=== PATIENT | female | born 1960 ===

== ENCOUNTER 2017-02-24 14:53 | Inpatient (IN) | payer MEDICARE, OTHER ==
[2017-02-24 14:53] VITALS: BMI 35.4
[2017-02-24] MEDS ORDERED: Sodium Chloride 0.9% 1,000 ML IV ONE (15:17)
[2017-02-24] MEDS ORDERED: Iohexol 240 (50 ml) PO STA (15:17)
--- NOTE | 2017-02-24 15:25 | C.PDOC ---
History Of Present Illness 56 y/o female presents to ED with c/o right sided abdominal pain since Wednesday ( 5 days). Patient was seen by Dr. Plummer for symptoms, prescribed Cipro BID, which she has completed. Patient notes no improvement of pain with associated nausea, subjective fever, and trouble eating and drinking. Patient describes pain as constant, radiating to the back, and worse with movement. Patient also c /o abscess to right buttock near anus, noting she has had it drained in the past , but has been increasingly swollen and painful as of late. Denies headache, chest pain, SOB, vomiting, diarrhea, urinary symptoms. Time Seen by Provider: 02/24/17 15:10 Chief Complaint (Nursing): Abdominal Pain History Per: Patient History/Exam Limitations: no limitations Current Symptoms Are (Timing): Still Present Location Of Pain/Discomfort: RLQ Radiation Of Pain To:: None Quality Of Discomfort: "Pain" Associated Symptoms: Fever (subjective). denies: Vomiting, Diarrhea, Urinary Symptoms Recent travel outside of the [place]: No Past Medical History Reviewed: Historical Data, Nursing Documentation, Vital Signs Vital Signs: Last Vital Signs Temp 98.4 F 02/24/17 17:46 Pulse 72 02/24/17 17:46 Resp 17 02/24/17 17:46 BP 117/73 02/24/17 17:46 Pulse Ox 98 02/24/17 17:46 - Medical History PMH: Asthma, Back Problems (herniated disks), COPD, Diabetes, Emphysema, Gastritis, HTN, Hypercholesterolemia, Hypothyroidism, Kidney Stones, Chronic Kidney Disease, TIA Surgical History: Cholecystectomy, Endoscopy - [facility] Procedures COLONOSCOPY (04/17/14) ESOPHAGOGASTRODUODENOSCOPY [EGD] W/CLOSED BIOPSY (12/05/13) INJECT/INFUSE NEC (06/10/06) NEPHROTOMY (09/15/13) PERCU NEPHROSTMY W FRAG (08/17/13) PERCUTANEOUS PYELOGRAM (08/17/13) URETERAL CATHETERIZATION (09/15/13) VACCINATION NEC (10/12/14) Family History: States: Unknown Family Hx - Social History Hx Tobacco Use: No Hx Alcohol Use: No Hx Substance Use: No - Immunization History Hx Tetanus Toxoid Vaccination: No Hx Influenza Vaccination: No Hx Pneumococcal Vaccination: Yes (2013) Review Of Systems Except As Marked, All Systems Reviewed And Found Negative. Constitutional: Negative for: Fever, Chills Cardiovascular: Negative for: Chest Pain Respiratory: Negative for: Cough, Shortness of Breath, Wheezing Gastrointestinal: Positive for: Nausea, Abdominal Pain. Negative for: Vomiting , Diarrhea Skin: Negative for: Rash Physical Exam - Physical Exam Appears: Non-toxic, No Acute Distress Skin: Normal Color, Warm, Dry Head: Atraumatic, Normacephalic Oral Mucosa: Moist Chest: Symmetrical Cardiovascular: Rhythm Regular Respiratory: Normal Breath Sounds, No Rales, No Rhonchi, No Wheezing Gastrointestinal/Abdominal: Soft, Tenderness (RLQ ), No Distention, Guarding, No Rebound Rectal: Other (chronic abscess with minimal localized erythema, no fluctuance, + tenderness) Back: No CVA Tenderness Extremity: Normal ROM, Capillary Refill (< 2 sec. ) Extremity: Bilateral: Normal Color And Temperature Neurological/Psych: Oriented x3, Normal Speech, Normal Cognition ED Course And Treatment - Laboratory Results Result Diagrams: 02/24/17 15:43 02/24/17 15:43 Lab Interpretation: Abnormal Interpretation Of Abnormal: Lipase 784 Urine WBC 49 with 3+ leukocyte esterase O2 Sat by Pulse Oximetry: 96 (RA) Pulse Ox Interpretation: Normal - CT Scan/US CT abdomen and pelvis Other Rad Studies (CT/US): Read By Radiologist, Radiology Report Reviewed CT/US Interpretation: Accession No. : [id number]. Patient Name / ID : SUSY DESAI / [id number]. Exam Date : 02/24/2017 17:40:36 ( Approved ). Study Comment : Sex / Age : F / 56Y. Creator : Maria Del Rosario Lozoya MD. Dictator : Maria Del Rosario Lozoya MD. Splicing Supervisor : Warehouse Team Leader : Maria Del Rosario Lozoya MD. Approver2 : Report Date : 02/24/2017 18:13:03. My Comment : . PROCEDURE: CT Abdomen and Pelvis with oral and IV contrast. HISTORY: abd pain. COMPARISON: Renal ultrasound 05/01/16. TECHNIQUE: Contiguous axial images of the abdomen and pelvis. Oral and IV contrast was administered. Coronal and Sagittal reformats generated and reviewed. Contrast dose: 100 cc Visipaque. Radiation dose: Total exam DLP = 943.33 MGy-cm. This CT exam was performed using one or more of the following dose reduction techniques: Automated exposure control, adjustment of the mA and/or kV according to patient size, and/or use of iterative reconstruction technique. FINDINGS: LOWER THORAX : No visible consolidation, pleural effusion, or pneumothorax. LIVER: Hypoattenuation of the liver compatible with hepatic steatosis. GALLBLADDER AND BILE DUCTS: Cholecystectomy clips. PANCREAS: Unremarkable. SPLEEN: Unremarkable. ADRENALS: Unremarkable. KIDNEYS AND URETERS: The kidneys enhance symmetrically. No hydronephrosis or obstructing renal calculus. BLADDER : The urinary bladder appears unremarkable. REPRODUCTIVE: Uterus is absent, presumably due to hysterectomy. APPENDIX: The appendix appears within normal limits of caliber. No secondary signs of acute appendicitis. BOWEL: The stomach is nondistended. The bowel loops appear within normal limits of caliber without evidence of intestinal obstruction. Mild constipation. PERITONEUM: No significant free fluid. No definite free air. LYMPH NODES: No bulky lymphadenopathy identified. VASCULATURE: No aortic aneurysm. BONES: Degenerative changes. Vacuum disc phenomenon at L5-S1. OTHER FINDINGS: Partially imaged 2.5 x 2.6 cm partially calcified heterogeneous lesion within the left breast, indeterminate. Recommend correlation with dedicated breast imaging. IMPRESSION: Cholecystectomy. Hysterectomy. Hepatic steatosis. Partially imaged partially calcified heterogeneous lesion within the left breast , indeterminate. Recommend further evaluation with dedicated breast imaging. Mild constipation. Additional findings as above. Progress Note: CT abdomen/pelvis, labs ordered and reviewed. Treated with morphine, Zofran, IVFs. Reevaluation Time: 18:38 Reassessment Condition: Improved - Physician Consult Information Time Consulting Physician Contacted: 18:38 Physician Contacted: Roger Plummer Outcome Of Conversation: Patient to be kept on observation for IV fluids and pain management of pancreatitis. Disposition - Disposition Disposition: HOSPITALIZED Disposition Time: 18:39 Condition: STABLE - POA Present On Arrival: None - Clinical Impression Clinical Impression: Pancreatitis, UTI (urinary tract infection) - Scribe Statement The provider has reviewed the documentation as recorded by the Katarina Blanc Provider Attestation: All medical record entries made by the Katarina were at my direction and personally dictated by me. I have reviewed the chart and agree that the record accurately reflects my personal performance of the history, physical exam, medical decision making, and the department course for this patient. I have also personally directed, reviewed, and agree with the discharge instructions and disposition.
[2017-02-24] MEDS ORDERED: Sodium Chloride 0.9% 1,000 ML ONE (15:45)
[2017-02-24] MEDS ORDERED: Iohexol 240 (50 ml) ONE (15:46)
[2017-02-24 15:52] LABS: BASO # 0.1 K/uL (0.0-0.2); EOS # 0.5 K/uL (0.0-0.7); EOS % 6.5 % (0.0-4.0); HEMOGLOBIN 13.2 g/dL (11.0-16.0); LYMPH # 2.7 K/uL (1.0-4.3); LYMPH % 34.3 % (20.0-40.0); MEAN CELL VOLUME 87.1 fL (81.0-99.0); MEAN CORPUSCULAR HEMOGLOBIN 29.6 pg (27.0-31.0); MONO # 0.5 K/uL (0.0-0.8); MONO % 6.7 % (0.0-10.0); NEUT % 51.5 % (50.0-75.0); NRBC % 0.1 % (0.0-2.0); RBC 4.47 Mil/uL (3.80-5.20); RED CELL DISTRIBUTION WIDTH 13.7 % (11.5-14.5); WHITE BLOOD COUNT 7.8 K/uL (4.8-10.8)
[2017-02-24 15:59] LABS: SQUAMOUS EPITHIAL 16 /hpf (0-5); URINE BACTERIA RARE (<OCC); URINE BILIRUBIN NEGATIVE (NEGATIVE); URINE BLOOD NEGATIVE (NEGATIVE); URINE CLARITY Hazy (Clear); URINE COLOR Yellow (YELLOW); URINE GLUCOSE (UA) NORMAL (Normal); URINE LEUKOCYTE ESTERASE 3+ Leu/uL (Negative); URINE NITRATE NEGATIVE (NEGATIVE); URINE PROTEIN NEGATIVE (NEGATIVE); URINE UROBILINOGEN NORMAL mg/dL (0.2-1.0)
[2017-02-24 16:02] LABS: ALBUMIN 3.9 g/dL (3.5-5.0)
[2017-02-24 16:05] LABS: ALT/SGPT 42 U/L (9-52); AST/SGOT 33 U/L (14-36); BLOOD UREA NITROGEN 11 mg/dL (7-17); GFR AFRICAN-AMERICAN > 60; GFR NON-AFRICAN AMERICAN > 60; LIPASE 784 U/L (23-300)
[2017-02-24] MEDS ORDERED: Iohexol 350mg/ml 100 ML ONE (17:02)
--- NOTE | 2017-02-24 18:15 | CT ---
PROCEDURE: CT Abdomen and Pelvis with oral and IV contrast. HISTORY: abd pain COMPARISON: Renal ultrasound 05/01/16 TECHNIQUE: Contiguous axial images of the abdomen and pelvis. Oral and IV contrast was administered. Coronal and Sagittal reformats generated and reviewed. Contrast dose: 100 cc Visipaque Radiation dose: Total exam DLP = 943.33 MGy-cm. This CT exam was performed using one or more of the following dose reduction techniques: Automated exposure control, adjustment of the mA and/or kV according to patient size, and/or use of iterative reconstruction technique. FINDINGS: LOWER THORAX: No visible consolidation, pleural effusion, or pneumothorax. LIVER: Hypoattenuation of the liver compatible with hepatic steatosis. GALLBLADDER AND BILE DUCTS: Cholecystectomy clips. PANCREAS: Unremarkable. SPLEEN: Unremarkable. ADRENALS: Unremarkable. KIDNEYS AND URETERS: The kidneys enhance symmetrically. No hydronephrosis or obstructing renal calculus. BLADDER: The urinary bladder appears unremarkable. REPRODUCTIVE: Uterus is absent, presumably due to hysterectomy. APPENDIX: The appendix appears within normal limits of caliber. No secondary signs of acute appendicitis. BOWEL: The stomach is nondistended. The bowel loops appear within normal limits of caliber without evidence of intestinal obstruction. Mild constipation. PERITONEUM: No significant free fluid. No definite free air. LYMPH NODES: No bulky lymphadenopathy identified. VASCULATURE: No aortic aneurysm. BONES: Degenerative changes. Vacuum disc phenomenon at L5-S1. OTHER FINDINGS: Partially imaged 2.5 x 2.6 cm partially calcified heterogeneous lesion within the left breast, indeterminate. Recommend correlation with dedicated breast imaging. IMPRESSION: Cholecystectomy. Hysterectomy. Hepatic steatosis. Partially imaged partially calcified heterogeneous lesion within the left breast, indeterminate. Recommend further evaluation with dedicated breast imaging. Mild constipation. Additional findings as above.
[2017-02-24] MEDS ORDERED: Albuterol 0.083% Inhal Sol (2.5 mg/3 mL) UD INH PRN (19:13)
[2017-02-24] MEDS: Sodium Chloride 0.9% 1,000 ML IV SCH (20:26)
[2017-02-24 21:05] VITALS: RESP 20
[2017-02-24] MEDS: (Novolog) Insulin Aspart, Recombinant 100 u/ml 10 ml vial SC SCH (22:12)
--- NOTE | 2017-02-24 22:35 | CP.PCM.HP ---
History of Present Illness - History of Present Illness History of Present Illness: 56 y/o female presents to ED with c/o right sided abdominal pain since Wednesday ( 5 days). Patient was seen by me for symptoms, prescribed Cipro BID, which she has completed. Patient notes no improvement of pain with associated nausea, subjective fever, and trouble eating and drinking. Patient describes pain as constant, radiating to the back, and worse with movement. Patient also c/o abscess to right buttock near anus, noting she has had it drained in the past, but has been increasingly swollen and painful as of late. Denies headache, chest pain, SOB, vomiting, diarrhea, urinary symptoms. Present on Admission - Present on Admission Any Indicators Present on Admission: Yes Review of Systems - Review of Systems Systems not reviewed;Unavailable: Acuity of Condition - Constitutional Constitutional: Fatigue, Lethargy - EENT Eyes: absent: As Per HPI, Blind Spots, Blurred Vision, Change in Vision, Decreased Night Vision, Diplopia, Discharge, Dry Eye, Exophthalmos, Floaters, Irritation, Itchy Eyes, Loss of Peripheral Vision, Pain, Photophobia, Requires Corrective Lenses, Sees Flashes, Spots in Vision, Tunnel Vision, Other Visual Disturbances, Loss of Vision, Other Ears: absent: As Per HPI, Decreased Hearing, Ear Discharge, Ear Pain, Tinnitus, Abnormal Hearing, Disequilibrium, Dizziness, Other Nose/Mouth/Throat: absent: As Per HPI, Epistaxis, Nasal Congestion, Nasal Discharge, Nasal Obstruction, Nasal Trauma, Nose Pain, Post Nasal Drip, Sinus Pain, Sinus Pressure, Bleeding Gums, Change in Voice, Dental Pain, Dry Mouth, Dysphagia, Halitosis, Hoarsness, Lip Swelling, Mouth Lesions, Mouth Pain, Odynophagia, Sore Throat, Throat Swelling, Tongue Swelling, Facial Pain, Neck Pain, Neck Mass, Other - Respiratory Respiratory: absent: As Per HPI, Cough, Dyspnea, Hemoptysis, Dyspnea on Exertion , Wheezing, Snoring, Stridor, Pain on Inspiration, Chest Congestion, Excessive Mucous Production, Change in Mucous Color, Pain with Coughing, Other - Gastrointestinal Gastrointestinal: Abdominal Pain, Nausea, Vomiting - Genitourinary Genitourinary: absent: As Per HPI, Change in Urinary Stream, Difficulty Urinating, Dysuria, Flank Pain, Hematuria, Pyuria, Nocturia, Urinary Incontinence, Urinary Frequency, Urinary Hesitance, Urinary Urgency, Voiding Freq/Small Amts, Freq UTI, Hx Renal/Bladder Calculi, Hx /Renal Surgery, Bladder Distension, Other Past Patient History - Infectious Disease Hx of Infectious Diseases: None - Tetanus Immunizations Tetanus Immunization: Unknown - Past Medical History & Family History Past Medical History?: Yes - Past Social History Smoking Status: Never Smoked - CARDIAC Hx Hypercholesterolemia: Yes Hx Hypertension: Yes - PULMONARY Hx Asthma: Yes Hx Chronic Obstructive Pulmonary Disease (COPD): Yes Hx Emphysema: Yes - NEUROLOGICAL Hx Transient Ischemic Attacks (TIA): Yes - HEENT Hx HEENT Problems: No - RENAL Hx Chronic Kidney Disease: Yes Hx Kidney Stones: Yes - ENDOCRINE/METABOLIC Hx Hypothyroidism: Yes - HEMATOLOGICAL/ONCOLOGICAL Hx Blood Disorders: No - INTEGUMENTARY Hx Dermatological Problems: No - MUSCULOSKELETAL/RHEUMATOLOGICAL Hx Falls: No - GASTROINTESTINAL Hx Gastritis: Yes - GENITOURINARY/GYNECOLOGICAL Hx Genitourinary Disorders: No - PSYCHIATRIC Hx Substance Use: No - SURGICAL HISTORY Hx Cholecystectomy: Yes - ANESTHESIA Hx Anesthesia: Yes Hx Anesthesia Reactions: No Hx Malignant Hyperthermia: No Meds Allergies/Adverse Reactions: Allergies Allergy/AdvReac Type Severity Reaction Status Date / Time apple Allergy SWELLING Verified 02/24/17 15:02 murcia Allergy SHORTNESS Verified 02/24/17 15:02 OF BREATH pear Allergy SWELLING Verified 02/24/17 15:02 Physical Exam - Constitutional Appears: No Acute Distress - Head Exam Head Exam: ATRAUMATIC, NORMAL INSPECTION, NORMOCEPHALIC - Eye Exam Eye Exam: EOMI, Normal appearance, PERRL Pupil Exam: NORMAL ACCOMODATION, PERRL - Respiratory Exam Respiratory Exam: Clear to Auscultation Bilateral, NORMAL BREATHING PATTERN - Cardiovascular Exam Cardiovascular Exam: REGULAR RHYTHM - GI/Abdominal Exam GI & Abdominal Exam: Normal Bowel Sounds, Soft. absent: Tenderness Results - Vital Signs Recent Vital Signs: Last Vital Signs Temp 97.7 F 02/24/17 21:02 Pulse 69 02/24/17 21:02 Resp 20 02/24/17 21:02 BP 146/81 02/24/17 21:02 Pulse Ox 97 02/24/17 21:02 - Labs Result Diagrams: 02/24/17 15:43 02/25/17 12:23 Labs: Laboratory Results - last 24 hr 02/24/17 21:27 POC Glucose (mg/dL) 124 H Assessment & Plan (1) Pancreatitis Status: Acute (2) UTI (urinary tract infection) Status: Acute (3) Uncontrolled diabetes mellitus Status: Acute (4) Urinary tract infection Status: Acute (5) Hypertension Status: Chronic
[2017-02-25] MEDS: (Novolog) Insulin Aspart, Recombinant 100 u/ml 10 ml vial SC SCH ×4 (07:54→22:00)
[2017-02-25] MEDS: Enoxaparin 40 mg Syringe SC SCH (09:21)
[2017-02-25 12:59] LABS: BLOOD UREA NITROGEN 8 mg/dL (7-17); GFR AFRICAN-AMERICAN > 60; GFR NON-AFRICAN AMERICAN > 60; LIPASE 616 U/L (23-300)
[2017-02-25 13:00] LABS: CALCIUM 9.4 mg/dl (8.6-10.4)
--- NOTE | 2017-02-25 14:34 | CP.PCM.PN ---
Subjective - Date & Time of Evaluation Date of Evaluation: 02/25/17 Time of Evaluation: 09:50 - Subjective Subjective: Pt seen & examined, still c/o abdominal pain Objective - Vital Signs/Intake and Output Vital Signs (last 24 hours): Temp Pulse Resp BP Pulse Ox 97.6 F 68 20 126/75 95 02/25/17 09:07 02/25/17 09:07 02/25/17 09:07 02/25/17 09:07 02/25/17 09:07 - Medications Medications: Current Medications Albuterol Sulfate (Albuterol 0.083% Inhal Elvira (2.5 Mg/3 Ml) Ud) 2.5 mg INH RQ6 PRN PRN Reason: Wheezing Enoxaparin Sodium (Lovenox) 40 mg SC DAILY [facility] Last Admin: 02/25/17 09:21 Dose: 40 mg Ceftriaxone Sodium 1 gm/ (Sodium Chloride) 100 mls @ 100 mls/hr IVPB DAILY [facility] Last Admin: 02/25/17 09:17 Dose: 100 mls/hr Sodium Chloride (Sodium Chloride 0.9%) 1,000 mls @ 100 mls/hr IV .Q10H [facility] Last Admin: 02/24/17 20:26 Dose: 100 mls/hr Insulin Aspart (Novolog) 0 unit SC ACHS [facility] PRN Reason: Protocol Last Admin: 02/25/17 11:50 Dose: Not Given Morphine Sulfate (Morphine) 2 mg SC Q4 PRN PRN Reason: pain Last Admin: 02/25/17 07:47 Dose: 2 mg Ondansetron HCl (Zofran Inj) 4 mg IVP Q8H PRN PRN Reason: Nausea/Vomiting Last Admin: 02/25/17 11:46 Dose: 4 mg Pneumococcal Polyvalent Vaccine (Pneumovax 23 Vaccine) 0.5 ml IM .ONCE ONE Stop: 02/27/17 08:01 - Labs Labs: 02/25/17 12:23 - Constitutional Appears: No Acute Distress - Head Exam Head Exam: ATRAUMATIC, NORMAL INSPECTION, NORMOCEPHALIC - Respiratory Exam Respiratory Exam: Clear to Ausculation Bilateral, NORMAL BREATHING PATTERN - Cardiovascular Exam Cardiovascular Exam: REGULAR RHYTHM, +S1, +S2. absent: Murmur - GI/Abdominal Exam GI & Abdominal Exam: Tenderness, Normal Bowel Sounds - Rectal Exam Rectal Exam: Deferred Assessment and Plan (1) Pancreatitis Status: Resolved (2) UTI (urinary tract infection) Status: Acute (3) Uncontrolled diabetes mellitus Status: Acute (4) Urinary tract infection Status: Acute (5) Hypertension Status: Chronic
[2017-02-25] MEDS: Sodium Chloride 0.9% 1,000 ML IV SCH ×2 (15:16→22:44)
[2017-02-26] MEDS: Sodium Chloride 0.9% 1,000 ML IV SCH ×4 (03:00→22:49)
[2017-02-26] MEDS: (Novolog) Insulin Aspart, Recombinant 100 u/ml 10 ml vial SC SCH ×4 (08:07→21:59)
[2017-02-26] MEDS: Enoxaparin 40 mg Syringe SC SCH (10:46)
[2017-02-26] MEDS: Hemorrohoidal Ointment (2 oz) TOP SCH (19:13)
[2017-02-27] MEDS: Sodium Chloride 0.9% 1,000 ML IV SCH (06:16)
--- NOTE | 2017-02-27 07:18 | CP.PCM.PN ---
Subjective - Date & Time of Evaluation Date of Evaluation: 02/27/17 Time of Evaluation: 20:00 - Subjective Subjective: Pt seen & examined, is improving, abdominal pain decreased Objective - Vital Signs/Intake and Output Vital Signs (last 24 hours): Temp Pulse Resp BP Pulse Ox 98.4 F 66 20 168/84 H 96 02/27/17 00:00 02/27/17 00:00 02/27/17 00:00 02/27/17 00:00 02/27/17 00:00 Intake and Output: 02/27/17 02/27/17 06:59 18:59 Intake Total 1900 Output Total 1 Balance 1899 - Medications Medications: Current Medications Albuterol Sulfate (Albuterol 0.083% Inhal Elvira (2.5 Mg/3 Ml) Ud) 2.5 mg INH RQ6 PRN PRN Reason: Wheezing Enoxaparin Sodium (Lovenox) 40 mg SC DAILY [facility] Last Admin: 02/26/17 10:46 Dose: 40 mg Ceftriaxone Sodium 1 gm/ (Sodium Chloride) 100 mls @ 100 mls/hr IVPB DAILY [facility] Last Admin: 02/26/17 10:46 Dose: 100 mls/hr Sodium Chloride (Sodium Chloride 0.9%) 1,000 mls @ 100 mls/hr IV .Q10H [facility] Last Admin: 02/27/17 06:16 Dose: 100 mls/hr Insulin Aspart (Novolog) 0 unit SC ACHS [facility] PRN Reason: Protocol Last Admin: 02/26/17 21:59 Dose: Not Given Morphine Sulfate (Morphine) 2 mg SC Q4 PRN PRN Reason: pain Last Admin: 02/26/17 19:06 Dose: 2 mg Multi-Ingredient Ointment (Prep-Hem) 1 ea TOP BID [facility] Last Admin: 02/26/17 19:13 Dose: 1 applic Ondansetron HCl (Zofran Inj) 4 mg IVP Q8H PRN PRN Reason: Nausea/Vomiting Last Admin: 02/25/17 11:46 Dose: 4 mg Pneumococcal Polyvalent Vaccine (Pneumovax 23 Vaccine) 0.5 ml IM .ONCE ONE Stop: 02/27/17 08:01 Assessment and Plan (1) Pancreatitis Status: Resolved (2) UTI (urinary tract infection) Status: Acute (3) Uncontrolled diabetes mellitus Status: Acute (4) Urinary tract infection Status: Acute (5) Hypertension Status: Chronic
--- NOTE | 2017-02-27 07:18 | CP.PCM.PN ---
Subjective - Date & Time of Evaluation Date of Evaluation: 02/26/17 Time of Evaluation: 19:30 - Subjective Subjective: pt is having RLQ abdominal pain and back pain Objective - Vital Signs/Intake and Output Vital Signs (last 24 hours): Temp Pulse Resp BP Pulse Ox 98.4 F 66 20 168/84 H 96 02/27/17 00:00 02/27/17 00:00 02/27/17 00:00 02/27/17 00:00 02/27/17 00:00 Intake and Output: 02/27/17 02/27/17 06:59 18:59 Intake Total 1900 Output Total 1 Balance 1899 - Medications Medications: Current Medications Albuterol Sulfate (Albuterol 0.083% Inhal Elvira (2.5 Mg/3 Ml) Ud) 2.5 mg INH RQ6 PRN PRN Reason: Wheezing Enoxaparin Sodium (Lovenox) 40 mg SC DAILY [facility] Last Admin: 02/26/17 10:46 Dose: 40 mg Ceftriaxone Sodium 1 gm/ (Sodium Chloride) 100 mls @ 100 mls/hr IVPB DAILY [facility] Last Admin: 02/26/17 10:46 Dose: 100 mls/hr Sodium Chloride (Sodium Chloride 0.9%) 1,000 mls @ 100 mls/hr IV .Q10H [facility] Last Admin: 02/27/17 06:16 Dose: 100 mls/hr Insulin Aspart (Novolog) 0 unit SC ACHS [facility] PRN Reason: Protocol Last Admin: 02/26/17 21:59 Dose: Not Given Morphine Sulfate (Morphine) 2 mg SC Q4 PRN PRN Reason: pain Last Admin: 02/26/17 19:06 Dose: 2 mg Multi-Ingredient Ointment (Prep-Hem) 1 ea TOP BID [facility] Last Admin: 02/26/17 19:13 Dose: 1 applic Ondansetron HCl (Zofran Inj) 4 mg IVP Q8H PRN PRN Reason: Nausea/Vomiting Last Admin: 02/25/17 11:46 Dose: 4 mg Pneumococcal Polyvalent Vaccine (Pneumovax 23 Vaccine) 0.5 ml IM .ONCE ONE Stop: 02/27/17 08:01 - Constitutional Appears: No Acute Distress - Head Exam Head Exam: ATRAUMATIC, NORMAL INSPECTION, NORMOCEPHALIC - Eye Exam Eye Exam: EOMI, Normal appearance, PERRL Pupil Exam: NORMAL ACCOMODATION, PERRL - ENT Exam ENT Exam: Mucous Membranes Moist, Normal Exam - Respiratory Exam Respiratory Exam: Clear to Ausculation Bilateral, NORMAL BREATHING PATTERN - Cardiovascular Exam Cardiovascular Exam: REGULAR RHYTHM, +S1, +S2. absent: Murmur - GI/Abdominal Exam GI & Abdominal Exam: Tenderness Additional comments: RLQ - Extremities Exam Extremities Exam: Full ROM, Normal Capillary Refill, Normal Inspection. absent : Joint Swelling, Pedal Edema - Back Exam Back Exam: muscle spasm, paraspinal tenderness - Neurological Exam Neurological Exam: Alert, Awake, CN II-XII Intact, Normal Gait, Oriented x3 Assessment and Plan (1) Pancreatitis Status: Resolved (2) UTI (urinary tract infection) Status: Acute (3) Uncontrolled diabetes mellitus Status: Acute (4) Urinary tract infection Status: Acute (5) Hypertension Status: Chronic
[2017-02-27] MEDS ORDERED: Pneumococcal 23-Valent Vaccine IM ONE (08:00)
[2017-02-27] MEDS: (Novolog) Insulin Aspart, Recombinant 100 u/ml 10 ml vial SC SCH ×2 (08:08→12:05)
[2017-02-27] MEDS: Enoxaparin 40 mg Syringe SC SCH (10:03)
[2017-02-27] MEDS: Hemorrohoidal Ointment (2 oz) TOP SCH (12:57)
--- NOTE | 2017-02-27 16:08 | CP.PCM.PN ---
Subjective - Date & Time of Evaluation Date of Evaluation: 02/27/17 Time of Evaluation: 10:55 - Subjective Subjective: Pt seen and examined today , RLQ abdominal pain and back pain improved, denies any N/V/D, tolerating regular diet a febrile Objective - Vital Signs/Intake and Output Vital Signs (last 24 hours): Temp Pulse Resp BP Pulse Ox 97.7 F 62 20 123/76 97 02/27/17 07:30 02/27/17 07:30 02/27/17 07:30 02/27/17 07:30 02/27/17 07:30 Intake and Output: 02/27/17 02/27/17 06:59 18:59 Intake Total 1900 1250 Output Total 1 Balance 1899 1250 - Medications Medications: Current Medications Albuterol Sulfate (Albuterol 0.083% Inhal Elvira (2.5 Mg/3 Ml) Ud) 2.5 mg INH RQ6 PRN PRN Reason: Wheezing Enoxaparin Sodium (Lovenox) 40 mg SC DAILY [facility] Last Admin: 02/27/17 10:03 Dose: 40 mg Ceftriaxone Sodium 1 gm/ (Sodium Chloride) 100 mls @ 100 mls/hr IVPB DAILY [facility] Last Admin: 02/27/17 12:55 Dose: 100 mls/hr Sodium Chloride (Sodium Chloride 0.9%) 1,000 mls @ 100 mls/hr IV .Q10H [facility] Last Admin: 02/27/17 06:16 Dose: 100 mls/hr Insulin Aspart (Novolog) 0 unit SC ACHS [facility] PRN Reason: Protocol Last Admin: 02/27/17 12:05 Dose: Not Given Morphine Sulfate (Morphine) 2 mg SC Q4 PRN PRN Reason: pain Last Admin: 02/26/17 19:06 Dose: 2 mg Multi-Ingredient Ointment (Prep-Hem) 1 ea TOP BID [facility] Last Admin: 02/27/17 12:57 Dose: 1 applic Ondansetron HCl (Zofran Inj) 4 mg IVP Q8H PRN PRN Reason: Nausea/Vomiting Last Admin: 02/25/17 11:46 Dose: 4 mg Assessment and Plan - Assessment and Plan (Free Text) Assessment: A/P 56 yr old female admitted for RLQ abdominal pain/ pancreatitis /UTI lipase improved- [phone] Pt tolerated reg diet D/W Dr. plummer ,stable for discharge home and f/u wiht Dr. Plummer office in 1 week Discharge plan discussed with patient who understands and agrees with plan Pt instructed to returns to ED if symptoms returns
[2017-02-27 16:48] VITALS: BP 142/79; PULSE 69; TEMP 98; O2SAT 96
--- NOTE | 2017-03-02 16:24 | CP.PCM.DIS ---
Provider - Provider Date of Admission: 02/25/17 14:15 Attending physician: Roger Plummer MD Time Spent in preparation of Discharge (in minutes): 34 Diagnosis - Discharge Diagnosis (1) Pancreatitis Status: Resolved (2) UTI (urinary tract infection) Status: Acute (3) Uncontrolled diabetes mellitus Status: Acute (4) Urinary tract infection Status: Acute (5) Hypertension Status: Chronic Hospital Course - Lab Results Lab Results: Micro Results 02/26/17 15:00 Urine Urine Culture - Final No Growth (<1,000 CFU/ML) Most Recent Lab Values WBC 7.8 K/uL (4.8-10.8) 02/24/17 15:43 RBC 4.47 Mil/uL (3.80-5.20) 02/24/17 15:43 Hgb 13.2 g/dL (11.0-16.0) 02/24/17 15:43 Hct 39.0 % (34.0-47.0) 02/24/17 15:43 MCV 87.1 fL (81.0-99.0) 02/24/17 15:43 MCH 29.6 pg (27.0-31.0) 02/24/17 15:43 MCHC 34.0 g/dL (33.0-37.0) 02/24/17 15:43 RDW 13.7 % (11.5-14.5) 02/24/17 15:43 Plt Count 200 K/uL (130-400) 02/24/17 15:43 MPV 9.0 fL (7.2-11.7) 02/24/17 15:43 Neut % (Auto) 51.5 % (50.0-75.0) 02/24/17 15:43 Lymph % (Auto) 34.3 % (20.0-40.0) 02/24/17 15:43 [place] % (Auto) 6.7 % (0.0-10.0) 02/24/17 15:43 Eos % (Auto) 6.5 % (0.0-4.0) H 02/24/17 15:43 Baso % (Auto) 1.0 % (0.0-2.0) 02/24/17 15:43 Neut # 4.0 K/uL (1.8-7.0) 02/24/17 15:43 Lymph # 2.7 K/uL (1.0-4.3) 02/24/17 15:43 [place] # 0.5 K/uL (0.0-0.8) 02/24/17 15:43 Eos # 0.5 K/uL (0.0-0.7) 02/24/17 15:43 Baso # 0.1 K/uL (0.0-0.2) 02/24/17 15:43 Sodium 138 mmol/L (132-148) 02/25/17 12:23 Potassium 4.1 mmol/L (3.6-5.2) 02/25/17 12:23 Chloride 105 mmol/L (98-107) 02/25/17 12:23 Carbon Dioxide 24 mmol/L (22-30) 02/25/17 12:23 Anion Gap 12 (10-20) 02/25/17 12:23 BUN 8 mg/dL (7-17) 02/25/17 12:23 Creatinine 0.6 MG/DL (0.7-1.2) L 02/25/17 12:23 Est GFR ( Amer) > 60 02/25/17 12:23 Est GFR (Non-Af Amer) > 60 02/25/17 12:23 POC Glucose (mg/dL) 112 mg/dL (65-110) H 02/27/17 16:18 Random Glucose 100 mg/dL (65-105) 02/25/17 12:23 Calcium 9.4 mg/dl (8.6-10.4) 02/25/17 12:23 Total Bilirubin 0.5 mg/dL (0.2-1.3) 02/24/17 15:43 AST 33 U/L (14-36) 02/24/17 15:43 ALT 42 U/L (9-52) 02/24/17 15:43 Alkaline Phosphatase 131 U/L (38-126) H D 02/24/17 15:43 Total Protein 7.6 g/dL (6.3-8.3) 02/24/17 15:43 Albumin 3.9 g/dL (3.5-5.0) 02/24/17 15:43 Globulin 3.7 gm/dL (2.2-3.9) 02/24/17 15:43 Albumin/Globulin Ratio 1.0 (1.0-2.1) 02/24/17 15:43 Lipase 235 U/L (23-300) 02/26/17 06:00 Urine Color Yellow (YELLOW) 02/24/17 15:43 Urine Clarity Hazy (Clear) 02/24/17 15:43 Urine pH 5.0 (5.0-8.0) 02/24/17 15:43 Ur Specific [place] 1.025 (1.003-1.030) 02/24/17 15:43 Urine Protein Negative mg/dL (NEGATIVE) 02/24/17 15:43 Urine Glucose (UA) Normal mg/dL (Normal) 02/24/17 15:43 Urine Ketones Negative mg/dL (NEGATIVE) 02/24/17 15:43 Urine Blood Negative (NEGATIVE) 02/24/17 15:43 Urine Nitrate Negative (NEGATIVE) 02/24/17 15:43 Urine Bilirubin Negative (NEGATIVE) 02/24/17 15:43 Urine Urobilinogen Normal mg/dL (0.2-1.0) 02/24/17 15:43 Ur Leukocyte Esterase 3+ Fausto/uL (Negative) H 02/24/17 15:43 Urine WBC (Auto) 49 /hpf (0-5) H 02/24/17 15:43 Urine RBC (Auto) 3 /hpf (0-3) 02/24/17 15:43 Ur Squamous Epith Cells 16 /hpf (0-5) H 02/24/17 15:43 Urine Bacteria Rare (<OCC) 02/24/17 15:43 Stool Occult Blood Negative (NEGATIVE) 02/26/17 22:59 - Hospital Course Hospital Course: 56 yr old female admitted for RLQ abdominal pain/ pancreatitis /UTI lipase improved- 225<615 Pt tolerated reg diet stable for discharge home and f/u with me in office in 1 week Discharge plan discussed with patient who understands and agrees with plan Pt instructed to returns to ED if symptoms returns Discharge Exam - Head Exam Head Exam: ATRAUMATIC, NORMAL INSPECTION, NORMOCEPHALIC - Eye Exam Eye Exam: EOMI, Normal appearance, PERRL Pupil Exam: NORMAL ACCOMODATION, PERRL - ENT Exam ENT Exam: Mucous Membranes Moist - Respiratory Exam Respiratory Exam: Clear to PA & Lateral, NORMAL BREATHING PATTERN - Cardiovascular Exam Cardiovascular Exam: REGULAR RHYTHM, +S1, +S2 - GI/Abdominal Exam GI & Abdominal Exam: Normal Bowel Sounds Discharge Plan - Discharge Medications Prescriptions: Cephalexin [cephalexin] 500 mg PO BID #10 cap - Follow Up Plan Condition: STABLE Disposition: HOME/ ROUTINE Instructions: Pancreatitis (DC), Kidney Stones (DC), Kidney Stones (GEN), Urinary Tract Infection in Women (DC), Urinary Tract Infection in Men (DC), Renal Colic (GEN), Dysuria (GEN) Additional Instructions: f/u with Dr. Plummer office in 1 week continue medication as per med. Rec. Referrals: Roger Plummer MD [Staff Provider] -
== END 2017-02-27 20:30 | disposition home or self-care (01) | DRG 689 ==
LOC: C.ER 14:53 → C.9E 18:40 → C.3T 19:14 → OBSVTOIN 02-25 14:15
PROVIDERS: ADMIT Internal Medicine; ATTEND Internal Medicine
DX: N39.0 Urinary tract infection, site not specified (principal); K85.90 Acute pancreatitis without necrosis or infection, unspecified; E11.22 Type 2 diabetes mellitus with diabetic chronic kidney disease; E11.65 Type 2 diabetes mellitus with hyperglycemia; E03.9 Hypothyroidism, unspecified; E78.00 Pure hypercholesterolemia, unspecified; I12.9 Hypertensive chronic kidney disease with stage 1 through stage 4 chronic kidney disease, or unspecified chronic kidney disease; N18.9 Chronic kidney disease, unspecified; J44.9 Chronic obstructive pulmonary disease, unspecified; Z86.73 Personal history of transient ischemic attack (TIA), and cerebral infarction without residual deficits; Z90.49 Acquired absence of other specified parts of digestive tract; Z87.442 Personal history of urinary calculi; Z23 Encounter for immunization

== ENCOUNTER 2017-08-25 18:21 | Emergency (ER) | payer MEDICARE ==
[2017-08-25 18:22] VITALS: BMI 35.4
[2017-08-25 19:26] VITALS: RESP 18
--- NOTE | 2017-08-25 20:27 | C.PDOC ---
History Of Present Illness 57 y/o female, with history of kidney stones, presents to the ER for evaluation of urine. Patient reports that she was advised to come to the ER by her PMD, for abnormal urinalysis. Patient reports that she has bilateral flank pain, dysuria, nausea, and chills. Patient denies having feve, hematuria and other medical complaints. Time Seen by Provider: 08/25/17 19:30 Chief Complaint (Nursing): Female Genitourinary History Per: Patient History/Exam Limitations: no limitations Onset/Duration Of Symptoms: Hrs Current Symptoms Are (Timing): Still Present Severity: Moderate Past Medical History Reviewed: Historical Data, Nursing Documentation, Vital Signs Vital Signs: Last Vital Signs Temp 97.9 F 08/25/17 19:21 Pulse 76 08/25/17 19:21 Resp 18 08/25/17 19:21 BP 167/79 H 08/25/17 19:21 Pulse Ox 97 08/25/17 20:33 - Medical History PMH: Asthma, Back Problems (herniated disks), COPD, Diabetes, Emphysema, Gastritis, HTN, Hypercholesterolemia, Hypothyroidism, Kidney Stones, Chronic Kidney Disease, TIA Surgical History: Cholecystectomy, Endoscopy - [facility] Procedures COLONOSCOPY (04/17/14) ESOPHAGOGASTRODUODENOSCOPY [EGD] W/CLOSED BIOPSY (12/05/13) INJECT/INFUSE NEC (06/10/06) NEPHROTOMY (09/15/13) PERCU NEPHROSTMY W FRAG (08/17/13) PERCUTANEOUS PYELOGRAM (08/17/13) URETERAL CATHETERIZATION (09/15/13) VACCINATION NEC (10/12/14) Family History: States: No Known Family Hx - Social History Hx Tobacco Use: No Hx Alcohol Use: No Hx Substance Use: No - Immunization History Hx Tetanus Toxoid Vaccination: No Hx Influenza Vaccination: No Hx Pneumococcal Vaccination: No Review Of Systems Except As Marked, All Systems Reviewed And Found Negative. Constitutional: Positive for: Chills. Negative for: Fever Gastrointestinal: Positive for: Nausea, Abdominal Pain (lower flank pain). Negative for: Vomiting, Diarrhea Genitourinary: Positive for: Dysuria Physical Exam - Physical Exam Appears: Non-toxic, No Acute Distress Skin: Normal Color, Warm Head: Atraumatic, Normacephalic Eye(s): bilateral: Normal Inspection, PERRL Nose: Normal Oral Mucosa: Moist Neck: Supple Chest: Symmetrical Cardiovascular: Rhythm Regular Respiratory: Normal Breath Sounds, No Accessory Muscle Use, No Wheezing Gastrointestinal/Abdominal: Normal Exam, Soft, No Tenderness Back: Normal Inspection, CVA Tenderness (bilateral ) Neurological/Psych: Oriented x3, Normal Speech, Normal Cognition, Normal Motor, Normal Sensation ED Course And Treatment - Laboratory Results Result Diagrams: 08/25/17 21:29 08/25/17 21:29 O2 Sat by Pulse Oximetry: 97 (RA) Pulse Ox Interpretation: Normal Progress Note: Labs and Abdomen/ Pelvis CT ordered.Patient given Toradol and Zofran. Disposition - Disposition Referrals: Roger Plummer MD [Staff Provider] - Disposition: HOME/ ROUTINE Disposition Time: 22:14 Condition: STABLE Additional Instructions: Please follow up with PMD Take meds as prescribed Return to ER if worse Prescriptions: Nitrofurantoin Macrocrystals [Macrobid] 1 cap PO BID #14 cap Instructions: Urinary Tract Infection in Women (ED) Forms: [employer] (Filipino) - Clinical Impression Clinical Impression: UTI (urinary tract infection) - PA / PROCESSING REP / Resident Statement MD/DO has reviewed & agrees with the documentation as recorded. - Scribe Statement The provider has reviewed the documentation as recorded by the Katarina Hamilton Provider Attestation All medical record entries made by the Sadiqibe were at my direction and personally dictated by me. I have reviewed the chart and agree that the record accurately reflects my personal performance of the history, physical exam, medical decision making, and the department course for this patient. I have also personally directed, reviewed, and agree with the discharge instructions and disposition.
--- NOTE | 2017-08-25 21:36 | CT ---
EXAM: CT Abdomen and Pelvis Without Intravenous Contrast CLINICAL HISTORY: 57 years old, female; Pain; Abdominal pain; Flank; Lower; Additional info: B/l flank pain TECHNIQUE: Axial computed tomography images of the abdomen and pelvis without intravenous contrast. All CT scans at this facility use one or more dose reduction techniques, viz.: automated exposure control; ma/kV adjustment per patient size (including targeted exams where dose is matched to indication; i.e. head); or iterative reconstruction technique. Coronal and sagittal reformatted images were created and reviewed. COMPARISON: No relevant prior studies available. FINDINGS: Lower thorax: Minimal atelectasis/scarring. ABDOMEN: Liver: Fatty infiltration. Gallbladder and bile ducts: Cholecystectomy. Common bile duct: Approximately 1.3 cm in diameter. Pancreas: Unremarkable. No ductal dilation. Spleen: No splenomegaly. Adrenals: No mass. Kidneys and ureters: Focal scarring lower pole of left kidney. Linear calcification or suture line along lower pole of left kidney. No hydronephrosis. Stomach and bowel: Underdistention of stomach, limiting evaluation. Apparent mild mural/fold thickening vs underdistention of few jejunal loops. No associated inflammatory stranding. No obstruction. Appendix: Normal caliber. No inflammation. PELVIS: Bladder: Unremarkable. No stones. Reproductive: Hysterectomy. ABDOMEN and PELVIS: Intraperitoneal space: No significant fluid collection. No free air. Bones/joints: 1.3 x 1.0 x 2.5 cm lobulated soft tissue structure along right iliac vessels, nonspecific. Degenerative changes of spine. No acute fracture. Soft tissues: Breast implants. Mild linear scarring within abdominal wall. Few small calcifications within right lower anterior abdominal wall. Vasculature: See above. Lymph nodes: No pathologically enlarged lymph nodes. IMPRESSION: 1. No CT evidence of obstructing urolithiasis. 2. Possible mild enteritis. Clinical correlation is needed. 3. Enlarged common bile duct. Correlate with laboratory values. Consider MRCP. 4. Incidental/non-acute findings are described above.
[2017-08-25 21:37] LABS: BASO # 0.1 K/uL (0.0-0.2); BASO % 1.4 % (0.0-2.0); EOS # 0.3 K/uL (0.0-0.7); EOS % 5.1 % (0.0-4.0); LYMPH % 44.1 % (20.0-40.0); MEAN CELL VOLUME 86.4 fL (81.0-99.0); MEAN CORPUSCULAR HEMOGLOBIN 29.2 pg (27.0-31.0); MEAN CORPUSCULAR HGB CONC 33.8 g/dL (33.0-37.0); MEAN PLATELET VOLUME 9.6 fL (7.2-11.7); MONO # 0.4 K/uL (0.0-0.8); MONO % 5.3 % (0.0-10.0); NEUT % 44.1 % (50.0-75.0); NRBC % 0.1 % (0.0-2.0); RBC 4.44 Mil/uL (3.80-5.20); RED CELL DISTRIBUTION WIDTH 13.4 % (11.5-14.5); WHITE BLOOD COUNT 6.8 K/uL (4.8-10.8)
[2017-08-25 21:43] LABS: SQUAMOUS EPITHIAL 4 /hpf (0-5); URINE BILIRUBIN NEGATIVE (NEGATIVE); URINE BLOOD NEGATIVE (NEGATIVE); URINE CLARITY Clear (Clear); URINE COLOR Yellow (YELLOW); URINE GLUCOSE (UA) 2+ mg/dL (Normal); URINE LEUKOCYTE ESTERASE 2+ Leu/uL (Negative); URINE NITRATE NEGATIVE (NEGATIVE); URINE PROTEIN NEGATIVE (NEGATIVE); URINE UROBILINOGEN NORMAL mg/dL (0.2-1.0)
[2017-08-25 21:50] LABS: ALB/GLOB RATIO 1.2 (1.0-2.1); ALBUMIN 4.1 g/dL (3.5-5.0); ALT/SGPT 61 U/L (9-52); AST/SGOT 56 U/L (14-36); BLOOD UREA NITROGEN 11 mg/dL (7-17); GFR AFRICAN-AMERICAN > 60; GFR NON-AFRICAN AMERICAN > 60; HCG,QUALITATIVE URINE NEGATIVE (NEGATIVE); LIPASE 127 U/L (23-300)
[2017-08-25 22:50] VITALS: BP 135/65; PULSE 72; TEMP 98.1; O2SAT 98
== END 2017-08-25 22:50 | disposition home or self-care (01) ==
LOC: C.ER 18:21
DX: E78.00 Pure hypercholesterolemia, unspecified (principal); E03.9 Hypothyroidism, unspecified; I12.9 Hypertensive chronic kidney disease with stage 1 through stage 4 chronic kidney disease, or unspecified chronic kidney disease; N18.9 Chronic kidney disease, unspecified
CPT/HCPCS: 74176; 80053; 81001; 83690; 84703; 85025; 96374; 96375; 99283; J1885; J2405

== ENCOUNTER 2018-03-15 18:54 | Observation (INO) | payer MEDICARE ==
[2018-03-15 18:54] VITALS: BMI 35.4
[2018-03-15] MEDS ORDERED: Sodium Chloride 0.9% 1,000 ML IV ONE (19:48)
[2018-03-15] MEDS ORDERED: Piperacill/Tazo 3.375gm in Dex 3.375 GM/50 ML BAG IVPB STA (19:49)
[2018-03-15] MEDS ORDERED: Sodium Chloride 0.9% 1,000 ML ONE (19:53)
[2018-03-15] MEDS ORDERED: Piperacillin/Tazobact 3.375 gm 100 ML IVPB ONE (19:56)
--- NOTE | 2018-03-15 20:05 | C.PDOC ---
History Of Present Illness 57 y/o female presents to ED for complaints of right greater than left breast pain that began after she had her breast implants removed and replaced in [place] 4 months ago. Patient states she did not take any antibiotics or medication for pain. Patient was seen by Dr. Plummer and referred to come here to the ER. Patient also reports its painful to abduct her right arm. Denies any other physical complaints. Time Seen by Provider: 03/15/18 19:34 Chief Complaint (Nursing): Breast Problem History Per: Patient History/Exam Limitations: no limitations Onset/Duration Of Symptoms: Hrs Current Symptoms Are (Timing): Still Present Recent travel outside of the [place] States: No Past Medical History Reviewed: Historical Data, Nursing Documentation, Vital Signs Vital Signs: Last Vital Signs Temp 97.8 F 03/16/18 00:11 Pulse 63 03/16/18 00:11 Resp 20 03/16/18 00:11 BP 158/80 H 03/16/18 00:11 Pulse Ox 97 03/16/18 00:11 - Medical History PMH: Asthma, Back Problems (herniated disks), COPD, Diabetes, Emphysema, Gastritis, HTN, Hypercholesterolemia, Hypothyroidism, Kidney Stones, Chronic Kidney Disease, TIA Surgical History: Cholecystectomy, Endoscopy - [facility] Procedures COLONOSCOPY (04/17/14) ESOPHAGOGASTRODUODENOSCOPY [EGD] W/CLOSED BIOPSY (12/05/13) INJECT/INFUSE NEC (06/10/06) NEPHROTOMY (09/15/13) PERCU NEPHROSTMY W FRAG (08/17/13) PERCUTANEOUS PYELOGRAM (08/17/13) URETERAL CATHETERIZATION (09/15/13) VACCINATION NEC (10/12/14) Family History: States: Unknown Family Hx - Social History Hx Tobacco Use: No Hx Alcohol Use: No Hx Substance Use: No - Immunization History Hx Tetanus Toxoid Vaccination: No Hx Influenza Vaccination: Yes Hx Pneumococcal Vaccination: No Review Of Systems Constitutional: Negative for: Fever, Chills Cardiovascular: Negative for: Chest Pain Gastrointestinal: Negative for: Nausea, Vomiting, Abdominal Pain, Diarrhea Musculoskeletal: Positive for: Other (Painful to abduct right arm ) Skin: Positive for: Other (Right greater than left breast pain ). Negative for : Rash Neurological: Negative for: Weakness, Numbness Physical Exam - Physical Exam Appears: Well, Non-toxic, No Acute Distress Skin: Normal Color, Warm, Dry, No Rash Head: Atraumatic, Normacephalic Eye(s): bilateral: Normal Inspection, PERRL, EOMI Oral Mucosa: Moist Neck: Supple Chest: Tenderness (To palpation ), Other (Right greater than left breast enlargement; erythematous; implants in place ) Cardiovascular: Rhythm Regular Respiratory: Normal Breath Sounds, No Decreased Breath Sounds, No Rales, No Rhonchi, No Wheezing Gastrointestinal/Abdominal: Soft, No Tenderness Extremity: No Tenderness, No Deformity, Other (Painful ROM in right arm ) Neurological/Psych: Oriented x3, Normal Speech Gait: Steady ED Course And Treatment - Laboratory Results Result Diagrams: 03/15/18 20:02 03/15/18 20:02 Lab Interpretation: Normal Urine POC: Negative ECG: Interpreted By Me ECG Rhythm: Sinus Rhythm ECG Interpretation: Normal Rate From EC O2 Sat by Pulse Oximetry: 96 (RA) Pulse Ox Interpretation: Normal - Radiology CXR: Interpreted by Mo CXR Interpretation: Yes: No Acute Disease, Other (breast implants, abnormal shape and internal densities.) - CT Scan/US Chest CT Other Rad Studies (CT/US): Read By Radiologist, Radiology Report Reviewed CT/US Interpretation: IMPRESSION: 1. There appear to be bilateral breast implants in place however the internal attenuation in these. implants is atypical with large areas of heterogeneous soft tissue density noted. Correlation with. surgical history is required. A definite abscess is not seen. 2. Mild irregularity of the liver contour. Cannot exclude cirrhosis. Progress Note: zosyn/toradol, IVF Reevaluation Time: 22:17 Reassessment Condition: Improved - Physician Consult Information Outcome Of Conversation: 2215: d/w Dr. Plummer- PMD- ok to admit. Requests stat Surg Consult with Residents who will report to Dr. Olsen Medical Decision Making Medical Decision Making: Administered IV fuids, Toradol and Zosyn. Ordered CXR, CT chest, EKG, bloof work, blood culture, and urinalysis. ? early cellulitis vs chronic infections of breast implants with abnormal internal attenuation, ? early or chronic cellulitis of R lower breast no abscess, no leukocytosis abx and obs Disposition Doctor Will See Patient In The: Hospital Counseled Patient/Family Regarding: Studies Performed, Diagnosis - Disposition Disposition: HOSPITALIZED Disposition Time: 22:18 Condition: GOOD - Clinical Impression Clinical Impression: Complication of breast implant - Scribe Statement The provider has reviewed the documentation as recorded by the Scribe Rigo Gomez All medical record entries made by the Sadiqibe were at my direction and personally dictated by me. I have reviewed the chart and agree that the record accurately reflects my personal performance of the history, physical exam, medical decision making, and the department course for this patient. I have also personally directed, reviewed, and agree with the discharge instructions and disposition.
[2018-03-15 20:16] LABS: BASO # 0.1 K/uL (0.0-0.2); BASO % 1.2 % (0.0-2.0); EOS # 0.4 K/uL (0.0-0.7); EOS % 5.5 % (0.0-4.0); HEMOGLOBIN 12.8 g/dL (11.0-16.0); LYMPH # 3.1 K/uL (1.0-4.3); LYMPH % 40.4 % (20.0-40.0); MEAN CELL VOLUME 88.1 fL (81.0-99.0); MEAN CORPUSCULAR HEMOGLOBIN 29.7 pg (27.0-31.0); MEAN CORPUSCULAR HGB CONC 33.6 g/dL (33.0-37.0); MEAN PLATELET VOLUME 8.8 fL (7.2-11.7); MONO # 0.5 K/uL (0.0-0.8); MONO % 6.6 % (0.0-10.0); NEUT # 3.6 K/uL (1.8-7.0); NEUT % 46.3 % (50.0-75.0); NRBC % 0.2 % (0.0-2.0); RBC 4.31 Mil/uL (3.80-5.20); WHITE BLOOD COUNT 7.7 K/uL (4.8-10.8)
[2018-03-15 20:19] LABS: PROTHROMBIN TIME 11.3 SECONDS (9.7-12.2)
[2018-03-15 20:24] LABS: ALB/GLOB RATIO 1.4 (1.0-2.1); ALBUMIN 4.3 g/dL (3.5-5.0); ALT/SGPT 39 U/L (9-52); AST/SGOT 34 U/L (14-36); BLOOD UREA NITROGEN 12 mg/dL (7-17); CALCIUM 11.6 mg/dl (8.6-10.4); GFR AFRICAN-AMERICAN > 60; GFR NON-AFRICAN AMERICAN > 60
[2018-03-15 21:27] LABS: SQUAMOUS EPITHIAL 2 /hpf (0-5); URINE BILIRUBIN NEGATIVE (NEGATIVE); URINE BLOOD 1+ (NEGATIVE); URINE CALCIUM OXALATE CRYSTALS RARE /hpf (<OCC); URINE CLARITY Hazy (Clear); URINE COLOR Yellow (YELLOW); URINE GLUCOSE (UA) NORMAL (Normal); URINE LEUKOCYTE ESTERASE 2+ Leu/uL (Negative); URINE PROTEIN 1+ mg/dL (NEGATIVE); URINE UROBILINOGEN NORMAL mg/dL (0.2-1.0)
[2018-03-15] MEDS ORDERED: Albuterol 0.083% Inhal Sol (2.5 mg/3 mL) UD INH PRN (22:34)
[2018-03-15 23:32] VITALS: RESP 20
[2018-03-16] MEDS: Piperacillin/Tazobact 3.375 GM in Sodium Chloride 100 ML IVPB SCH ×4 (01:55→19:49)
--- NOTE | 2018-03-16 04:54 | CP.PCM.CON ---
History of Present Illness - History of Present Illness History of Present Illness: Surgery: Dr. Olsen CC: Breast pain HPI: 57F w. pmh of HTN, asthma, hypercholesterolemia, DM, and asthma presents w. Breast pain R>L. Pt has a hx of implants placed in [facility] 10 yrs ago. She states that she had a moderate amount of pain from these implants and went back to [place] 4 months ago for a revision. The implants were removed and she underwent breast augmentation with fat transfer. She states that since the procedure she has again been experiencing constant pain, again R>L. She states that initially following the procedure she had serous drainage from the L breast for several weeks. This resolved on its own but pain persisted. She states that the pain is constant. The pain in the R breast radiates to the R shoulder. She denies any fever but reports chills. No changes in appetite and she denies N/V/D. PMH: See above PSH: Hysterectomy, cholecystectomy, breast augmentation Meds: MAR reviewed NKDA Social: No ETOH/Tobacco/Drugs Fhx: non-contributory Review of Systems - Review of Systems All systems: reviewed and no additional remarkable complaints except (HPI) Past Patient History - Infectious Disease Hx of Infectious Diseases: None - Tetanus Immunizations Tetanus Immunization: Unknown - Past Medical History & Family History Past Medical History?: Yes - Past Social History Smoking Status: Never Smoked - CARDIAC Hx Hypercholesterolemia: Yes Hx Hypertension: Yes - PULMONARY Hx Asthma: Yes Hx Chronic Obstructive Pulmonary Disease (COPD): Yes Hx Emphysema: Yes - NEUROLOGICAL Hx Transient Ischemic Attacks (TIA): Yes - HEENT Hx HEENT Problems: No - RENAL Hx Chronic Kidney Disease: Yes Hx Kidney Stones: Yes - ENDOCRINE/METABOLIC Hx Hypothyroidism: Yes - HEMATOLOGICAL/ONCOLOGICAL Hx Blood Disorders: No - INTEGUMENTARY Hx Dermatological Problems: No - GASTROINTESTINAL Hx Gastritis: Yes - GENITOURINARY/GYNECOLOGICAL Hx Genitourinary Disorders: No - PSYCHIATRIC Hx Substance Use: No - SURGICAL HISTORY Hx Cholecystectomy: Yes - ANESTHESIA Hx Anesthesia: Yes Hx Anesthesia Reactions: No Hx Malignant Hyperthermia: No Meds Allergies/Adverse Reactions: Allergies Allergy/AdvReac Type Severity Reaction Status Date / Time apple Allergy SWELLING Verified 03/15/18 19:30 murcia Allergy SHORTNESS Verified 03/15/18 19:30 OF BREATH pear Allergy SWELLING Verified 03/15/18 19:30 - Medications Medications: Current Medications Acetaminophen (Tylenol 325mg Tab) 650 mg PO Q6 PRN PRN Reason: Fever >100.4 F Albuterol Sulfate (Albuterol 0.083% Inhal Elvira (2.5 Mg/3 Ml) Ud) 2.5 mg INH RTID PRN PRN Reason: Shortness of Breath Enoxaparin Sodium (Lovenox) 40 mg SC DAILY [facility] Piperacillin Sod/Tazobactam (Sod 3.375 gm/ Sodium Chloride) 100 mls @ 200 mls/ hr IVPB Q6H ELLE PRN Reason: Protocol Last Admin: 03/16/18 01:55 Dose: 200 mls/hr Insulin Glargine (Lantus) 30 unit SC HS ELLE Insulin Human Regular (Novolin R) 0 unit SC ACHS ELLE PRN Reason: Protocol Losartan Potassium (Cozaar) 50 mg PO DAILY [place] Metformin HCl (Glucophage) 1,000 mg PO BID [place] Oxycodone/Acetaminophen (Percocet 5/325 Mg Tab) 1 tab PO Q4 PRN PRN Reason: Pain, severe (8-10) Stop: 03/19/18 00:01 Fluticasone/Salmeterol (Advair Diskus 250/50) 1 puff INH RQD ELLE Physical Exam - Constitutional Appears: Non-toxic, No Acute Distress - Head Exam Head Exam: ATRAUMATIC, NORMOCEPHALIC - Eye Exam Eye Exam: EOMI - ENT Exam ENT Exam: Mucous Membranes Moist - Neck Exam Neck exam: Positive for: Full Rom - Respiratory Exam Respiratory Exam: NORMAL BREATHING PATTERN. absent: Accessory Muscle Use, Respiratory Distress - GI/Abdominal Exam GI & Abdominal Exam: Soft. absent: Tenderness - Neurological Exam Neurological exam: Alert, Oriented x3 - Skin Additional comments: Breast exam: Inferior aspect of B/L breast tender to palpation with some mild overlying erythema which is warm to touch, no drainage noted, surgical scars well healed, no axillary lymphadenopathy appreciated. Results - Vital Signs Recent Vital Signs: Last Vital Signs Temp 97.8 F 03/16/18 00:11 Pulse 63 03/16/18 00:11 Resp 20 03/16/18 00:11 BP 158/80 H 03/16/18 00:11 Pulse Ox 96 03/16/18 00:14 - Labs Result Diagrams: 03/15/18 20:02 03/15/18 20:02 Labs: Laboratory Results - last 24 hr 03/15/18 03/15/18 03/15/18 19:46 20:02 20:02 WBC 7.7 RBC 4.31 Hgb 12.8 Hct 38.0 MCV 88.1 MCH 29.7 MCHC 33.6 RDW 14.0 Plt Count 220 MPV 8.8 Neut % (Auto) 46.3 L Lymph % (Auto) 40.4 H [place] % (Auto) 6.6 Eos % (Auto) 5.5 H Baso % (Auto) 1.2 Neut # (Auto) 3.6 Lymph # (Auto) 3.1 [place] # (Auto) 0.5 Eos # (Auto) 0.4 Baso # (Auto) 0.1 PT 11.3 INR 1.0 APTT 31 Sodium Potassium Chloride Carbon Dioxide Anion Gap BUN Creatinine Est GFR ( Amer) Est GFR (Non-Af Amer) Random Glucose Calcium Total Bilirubin AST ALT Alkaline Phosphatase Total Protein Albumin Globulin Albumin/Globulin Ratio Urine Color Yellow Urine Clarity Hazy Urine pH 5.0 Ur Specific [place] 1.029 Urine Protein 1+ H Urine Glucose (UA) Normal Urine Ketones Negative Urine Blood 1+ H Urine Nitrate Negative Urine Bilirubin Negative Urine Urobilinogen Normal Ur Leukocyte Esterase 2+ H Urine WBC (Auto) 10 H Urine RBC (Auto) 12 H Ur Squamous Epith Cells 2 Calcium Oxalate Crystal Rare Urine HCG, Qual 03/15/18 03/15/18 20:02 20:52 WBC RBC Hgb Hct MCV MCH MCHC RDW Plt Count MPV Neut % (Auto) Lymph % (Auto) [place] % (Auto) Eos % (Auto) Baso % (Auto) Neut # (Auto) Lymph # (Auto) [place] # (Auto) Eos # (Auto) Baso # (Auto) PT INR APTT Sodium 144 Potassium 4.6 Chloride 106 Carbon Dioxide 26 Anion Gap 16 BUN 12 Creatinine 0.7 Est GFR ( Amer) > 60 Est GFR (Non-Af Amer) > 60 Random Glucose 146 H Calcium 11.6 H Total Bilirubin 0.3 AST 34 ALT 39 Alkaline Phosphatase 143 H Total Protein 7.4 Albumin 4.3 Globulin 3.1 Albumin/Globulin Ratio 1.4 Urine Color Urine Clarity Urine pH Ur Specific [place] Urine Protein Urine Glucose (UA) Urine Ketones Urine Blood Urine Nitrate Urine Bilirubin Urine Urobilinogen Ur Leukocyte Esterase Urine WBC (Auto) Urine RBC (Auto) Ur Squamous Epith Cells Calcium Oxalate Crystal Urine HCG, Qual Negative - Imaging and Cardiology CT scan - chest Status: Image reviewed by me, Report reviewed by me Assessment & Plan - Assessment and Plan (Free Text) Assessment: 57F s/p breast augmentation 4 months ago in [place], now with B/L R>L, possibly related to cellulitis -c/w abx -pain meds -recommend pt f/u with plastic surgeon -no acute surgical intervention at this time -will d/w attending Nickmaitis PGY4
--- NOTE | 2018-03-16 06:12 | CT ---
Date of service: 03/15/2018 PROCEDURE: CT Chest with contrast HISTORY: R>L breast implants infected, placed 4 mo ago COMPARISON: None. TECHNIQUE: Contiguous axial images were obtained through the chest with intravenous contrast enhancement. Sagittal and coronal reconstructions were performed. IV contrast: 100 mL Visipaque 320 Radiation dose (DLP): 571.67 mGy-cm. This CT exam was performed using one or more of the following dose reduction techniques: Automated exposure control, adjustment of the mA and/or kV according to patient size, and/or use of iterative reconstruction technique. FINDINGS: LUNGS: Focal hazy opacity at the lingula may represent atelectasis or less likely pneumonia. Otherwise no evidence of acute pathology in the lungs. 5 millimeter calcified nodule at the right apex. MEDIASTINUM: Unremarkable thoracic aorta. No aneurysm or dissection. Normal sized heart. Main pulmonary artery unremarkable. No vascular congestion. No evidence of significant mediastinal lymphadenopathy. Mildly enlarged bilateral axillary lymph nodes larger on the right. PLEURA: No pleural fluid. No pneumothorax. BONES: No fracture. No destructive lesion. UPPER ABDOMEN: Possible cirrhotic manifestation of the liver. OTHER FINDINGS: The patient status post bilateral breast implants. There are heterogeneous opacities in the implants raise the suspicious for possible infection in the implants. No evidence of discrete abscess formation. IMPRESSION: Heterogeneous opacities in the breast implants likely due to infectious process. No evidence of discrete abscess formation. Hazy opacity at the lingula may represent atelectasis or pneumonia. Preliminary report was submitted by [facility].
[2018-03-16] MEDS: (Novolin R) Insulin Human Regular 100 units/ml vial SC SCH ×4 (08:00→21:34)
[2018-03-16] MEDS: Oxycodone/Acetaminophen 5/325 mg Tab PO PRN ×2 (08:28→18:52)
--- NOTE | 2018-03-16 08:43 | RAD ---
Date of service: 03/15/2018 HISTORY: SOB COMPARISON: Portable chest 11/11/2014. TECHNIQUE: Chest PA and lateral FINDINGS: LUNGS: No active pulmonary disease. Calcified granuloma noted right apex once again. Limited linear atelectasis or fibrosis in the mid to inferior inferior left lung zone laterally. PLEURA: No significant pleural effusion identified. No pneumothorax apparent. CARDIOVASCULAR: Normal. OSSEOUS STRUCTURES: No significant abnormalities. VISUALIZED UPPER ABDOMEN: Normal. OTHER FINDINGS: None. IMPRESSION: No acute infiltrate or pleural effusion bilaterally. No pulmonary vascular congestion. Linear atelectasis or fibrosis noted mid to inferior left lung zone laterally.
[2018-03-16] MEDS: Enoxaparin 40 mg Syringe SC SCH (09:56)
[2018-03-16] MEDS: Fluticasone-Salmeterol 250-50mcg Diskus INH SCH (11:21)
--- NOTE | 2018-03-16 11:42 | CARD ---
APPROVED REPORT Date of service: 03/15/2018 EKG Measurement Heart [id number] <Conclusion> Normal sinus rhythm Nonspecific T wave abnormality Abnormal ECG
[2018-03-16] MEDS ORDERED: (Lantus) Insulin Glargine, Recombinant SC SCH (22:00)
--- NOTE | 2018-03-16 23:44 | CP.PCM.HP ---
History of Present Illness - History of Present Illness History of Present Illness: CC: Breast pain, discharge from right breast HPI: 57F w. pmh of HTN, asthma, hypercholesterolemia, DM, and asthma presents w. Breast pain R>L. Pt has a hx of implants placed in [facility] 10 yrs ago. She states that she had a moderate amount of pain from these implants and went back to [place] 4 months ago for a revision. The implants were removed and she underwent breast augmentation with fat transfer. She states that since the procedure she has again been experiencing constant pain, again R>L. She states that initially following the procedure she had serous drainage from the L breast for several weeks. This resolved on its own but pain persisted. She states that the pain is constant. The pain in the R breast radiates to the R shoulder. She denies any fever but reports chills. No changes in appetite and she denies N/V/D. Pt is not a candidate for surgical intervention she is on antibiotics PMH: See above PSH: Hysterectomy, cholecystectomy, breast augmentation Meds: MAR reviewed NKDA Social: No ETOH/Tobacco/Drugs Fhx: non-contributory Present on Admission - Present on Admission Any Indicators Present on Admission: Yes Review of Systems - Review of Systems Systems not reviewed;Unavailable: Acuity of Condition - Constitutional Constitutional: Fatigue, Lethargy, Malaise - EENT Eyes: absent: As Per HPI, Blind Spots, Blurred Vision, Change in Vision, Decreased Night Vision, Diplopia, Discharge, Dry Eye, Exophthalmos, Floaters, Irritation, Itchy Eyes, Loss of Peripheral Vision, Pain, Photophobia, Requires Corrective Lenses, Sees Flashes, Spots in Vision, Tunnel Vision, Other Visual Disturbances, Loss of Vision, Other Ears: absent: As Per HPI, Decreased Hearing, Ear Discharge, Ear Pain, Tinnitus, Abnormal Hearing, Disequilibrium, Dizziness, Other Nose/Mouth/Throat: absent: As Per HPI, Epistaxis, Nasal Congestion, Nasal Discharge, Nasal Obstruction, Nasal Trauma, Nose Pain, Post Nasal Drip, Sinus Pain, Sinus Pressure, Bleeding Gums, Change in Voice, Dental Pain, Dry Mouth, Dysphagia, Halitosis, Hoarsness, Lip Swelling, Mouth Lesions, Mouth Pain, Odynophagia, Sore Throat, Throat Swelling, Tongue Swelling, Facial Pain, Neck Pain, Neck Mass, Other - Breasts Breasts: Pain, Nipple Discharge, Swelling - Cardiovascular Cardiovascular: absent: As Per HPI, Acrocyanosis, Chest Pain, Chest Pain at Rest , Chest Pain with Activity, Claudication, Diaphoresis, Dyspnea, Dyspnea on Exertion, Edema, Irregular Heart Rhythm, Pain Radiating to Arm/Neck/Jaw, Leg Edema, Leg Ulcers, Lightheadedness, Orthopnea, Palpitations, Paroxysmal Nocturnal Dyspnea, Pedal Edema, Radiating Pain, Rapid Heart Rate, Slow Heart Rate, Syncope, Other - Respiratory Respiratory: absent: As Per HPI, Cough, Dyspnea, Hemoptysis, Dyspnea on Exertion , Wheezing, Snoring, Stridor, Pain on Inspiration, Chest Congestion, Excessive Mucous Production, Change in Mucous Color, Pain with Coughing, Other - Gastrointestinal Gastrointestinal: absent: As Per HPI, Abdominal Pain, Belching, Bloating, Change in Bowel Habits, Change in Stool Character, Coffee Ground Emesis, Constipation, Cramping, Diarrhea, Dyspepsia, Dysphagia, Early Satiety, Excessive Flatus, Fecal Incontinence, Heartburn, Hematemesis, Hematochezia, Loose Stools, Melena, Nausea, Odynophagia, Temesmus, Vomiting, Other - Genitourinary Genitourinary: absent: As Per HPI, Change in Urinary Stream, Difficulty Urinating, Dysuria, Flank Pain, Hematuria, Pyuria, Nocturia, Urinary Incontinence, Urinary Frequency, Urinary Hesitance, Urinary Urgency, Voiding Freq/Small Amts, Freq UTI, Hx Renal/Bladder Calculi, Hx /Renal Surgery, Bladder Distension, Other Past Patient History - Infectious Disease Hx of Infectious Diseases: None - Tetanus Immunizations Tetanus Immunization: Unknown - Past Medical History & Family History Past Medical History?: Yes - Past Social History Smoking Status: Never Smoked - CARDIAC Hx Hypercholesterolemia: Yes Hx Hypertension: Yes - PULMONARY Hx Asthma: Yes Hx Chronic Obstructive Pulmonary Disease (COPD): Yes Hx Emphysema: Yes - NEUROLOGICAL Hx Transient Ischemic Attacks (TIA): Yes - HEENT Hx HEENT Problems: No - RENAL Hx Chronic Kidney Disease: Yes Hx Kidney Stones: Yes - ENDOCRINE/METABOLIC Hx Hypothyroidism: Yes - HEMATOLOGICAL/ONCOLOGICAL Hx Blood Disorders: No - INTEGUMENTARY Hx Dermatological Problems: No - GASTROINTESTINAL Hx Gastritis: Yes - GENITOURINARY/GYNECOLOGICAL Hx Genitourinary Disorders: No - PSYCHIATRIC Hx Substance Use: No - SURGICAL HISTORY Hx Cholecystectomy: Yes - ANESTHESIA Hx Anesthesia: Yes Hx Anesthesia Reactions: No Hx Malignant Hyperthermia: No Meds Allergies/Adverse Reactions: Allergies Allergy/AdvReac Type Severity Reaction Status Date / Time apple Allergy SWELLING Verified 03/15/18 19:30 murcia Allergy SHORTNESS Verified 03/15/18 19:30 OF BREATH pear Allergy SWELLING Verified 03/15/18 19:30 Physical Exam - Constitutional Appears: Well, No Acute Distress - Eye Exam Eye Exam: EOMI, Normal appearance, PERRL Pupil Exam: NORMAL ACCOMODATION, PERRL - ENT Exam ENT Exam: Mucous Membranes Moist, Normal Exam - Respiratory Exam Respiratory Exam: Clear to Auscultation Bilateral, NORMAL BREATHING PATTERN - Cardiovascular Exam Cardiovascular Exam: REGULAR RHYTHM - GI/Abdominal Exam GI & Abdominal Exam: Normal Bowel Sounds, Soft. absent: Tenderness - Rectal Exam Rectal Exam: Deferred Results - Vital Signs Recent Vital Signs: Last Vital Signs Temp 98.4 F 03/16/18 15:30 Pulse 63 03/16/18 15:30 Resp 20 03/16/18 15:30 BP 137/74 03/16/18 15:30 Pulse Ox 96 03/16/18 15:30 - Labs Result Diagrams: 03/15/18 20:02 03/15/18 20:02 Labs: Laboratory Results - last 24 hr 03/16/18 03/16/18 03/16/18 07:00 11:04 16:34 POC Glucose (mg/dL) 109 104 91 03/16/18 21:34 POC Glucose (mg/dL) 145 H Assessment & Plan (1) Mastitis Status: Acute (2) Complication of breast implant Status: Acute (3) Lethargy Status: Acute (4) Uncontrolled diabetes mellitus Status: Acute (5) Hypertension Status: Chronic
[2018-03-17] MEDS: Oxycodone/Acetaminophen 5/325 mg Tab PO PRN (01:03)
[2018-03-17] MEDS: Piperacillin/Tazobact 3.375 GM in Sodium Chloride 100 ML IVPB SCH ×2 (01:05→08:54)
[2018-03-17] MEDS: Fluticasone-Salmeterol 250-50mcg Diskus INH SCH (07:36)
[2018-03-17] MEDS: (Novolin R) Insulin Human Regular 100 units/ml vial SC SCH ×2 (07:55→12:11)
[2018-03-17 08:05] VITALS: BP 134/75; PULSE 68; TEMP 97.7; O2SAT 97
[2018-03-17] MEDS: Enoxaparin 40 mg Syringe SC SCH ×2 (09:26→09:28)
--- NOTE | 2018-03-17 09:58 | CP.PCM.PN ---
Subjective - Date & Time of Evaluation Date of Evaluation: 03/17/18 Time of Evaluation: 09:58 - Subjective Subjective: PT CLEARED FOR D/C HOME TODAY PER DR. PAULA. RX GIVEN FOR PAIN MEDICINE AND CLEOCIN X7 DAYS. PT TO F/U WITH DR. PAULA AND MAKE AN INITIAL VISIT TO BE [facility] BY DR. CARR ([facility]). ALL D/C INFORMATION AND MEDS DISCUSSED AT LENGTH WITH THE PT. NO FURTHER ORDERS. -FOLLOW UP WITH DR. PAULA OR YOUR PRIMARY DOCTOR IN THE OFFICE WITHIN 5-7 DAYS ---CALL THE OFFICE TO MAKE AN APPOINTMENT. -MAKE AN APPOINTMENT TO SEE DR. JINNY CARR (PLASTIC SURGEON) IN HER OFFICE WITHIN 1-2 WEEKS AT MOST. -IF SWELLING AND PAIN TO YOUR BREASTS WORSEN, OR IF DRAINAGE AND/OR SKIN OPENINGS OCCUR, YOU MAY COME BACK TO THE ER FOR FURTHER EVALUATION AND NOTIFY YOUR DOCTOR IMMEDIATELY. -CONTINUE HOME MEDICATIONS USUAL. -YOU HAVE BEEN PRESCRIBED AN ANTIBIOTIC TO TAKE FOR YOUR INFECTION. THE ANTIBIOTIC PRESCRIPTION HAS BEEN SENT TO YOUR PHARMACY; PICK IT UP TODAY AND START TAKING EXACTLY PRESCRIBED: 1) CLEOCIN 300 MG (ANTIBIOTIC)---TAKE 1 CAPSULE BY MOUTH EVERY 8 HOURS (7:00 AM , 3:00 PM, AND 11:00 PM)--TAKE FOR A TOTAL OF 7 DAYS (START TAKING TONIGHT). 2) TRAMADOL 50 MG (PAIN MEDICINE)---TAKE 1 TABLET BY MOUTH EVERY 8 HOURS ONLY IF YOU NEED IT FOR SEVERE PAIN. THIS MEDICATION MAY MAKE YOU DROWSY AND SLEEPY SO BE VERY CAREFUL IF YOU TAKE IT. -FOR MILD TO MODERATE PAIN, TAKE REGULAR STRENGTH TYLENOL ACCORDING TO YOUR DISCHARGE MEDICATION LIST. -YOU MAY APPLY WARM COMPRESS (LIKE A WARM WASH CLOTH) TO YOUR BREASTS TO HELP WITH THE PAIN AND SWELLING; YOU MAY DO THIS SEVERAL TIMES A DAY. -IF YOU HAVE ANY QUESTIONS OR CONCERNS, FEEL FREE TO CONTACT DR. PAULA. Objective - Vital Signs/Intake and Output Vital Signs (last 24 hours): Temp Pulse Resp BP Pulse Ox 97.7 F 68 20 134/75 97 03/17/18 08:00 03/17/18 08:00 03/17/18 08:00 03/17/18 08:00 03/17/18 08:29 Intake and Output: 03/17/18 03/17/18 06:59 18:59 Intake Total 400 340 Balance 400 340 - Medications Medications: Current Medications Acetaminophen (Tylenol 325mg Tab) 650 mg PO Q6 PRN PRN Reason: Fever >100.4 F Albuterol Sulfate (Albuterol 0.083% Inhal Elvira (2.5 Mg/3 Ml) Ud) 2.5 mg INH RTID PRN PRN Reason: Shortness of Breath Enoxaparin Sodium (Lovenox) 40 mg SC DAILY [facility] Last Admin: 03/17/18 09:28 Dose: Not Given Piperacillin Sod/Tazobactam (Sod 3.375 gm/ Sodium Chloride) 100 mls @ 200 mls/ hr IVPB Q6H ELLE PRN Reason: Protocol Last Admin: 03/17/18 08:54 Dose: 200 mls/hr Insulin Glargine (Lantus) 30 unit SC HS [facility] Last Admin: 03/16/18 21:02 Dose: 30 units Insulin Human Regular (Novolin R) 0 unit SC ACHS [facility] PRN Reason: Protocol Last Admin: 03/17/18 07:55 Dose: Not Given Losartan Potassium (Cozaar) 50 mg PO DAILY [facility] Last Admin: 03/17/18 09:26 Dose: 50 mg Metformin HCl (Glucophage) 1,000 mg PO BID [facility] Last Admin: 03/17/18 09:27 Dose: Not Given Oxycodone/Acetaminophen (Percocet 5/325 Mg Tab) 1 tab PO Q4 PRN PRN Reason: Pain, severe (8-10) Stop: 03/19/18 00:01 Last Admin: 03/17/18 01:03 Dose: 1 tab Fluticasone/Salmeterol (Advair Diskus 250/50) 1 puff INH RQD [facility] Last Admin: 03/17/18 07:36 Dose: Not Given - Labs Labs: 03/15/18 20:02 03/15/18 20:02 PT 11.3 SECONDS (9.7-12.2) 03/15/18 20:02 INR 1.0 03/15/18 20:02 APTT 31 SECONDS (21-34) 03/15/18 20:02
--- NOTE | 2018-03-17 23:10 | CP.PCM.DIS ---
Provider - Provider Date of Admission: 03/15/18 22:19 Attending physician: Roger Paula MD Time Spent in preparation of Discharge (in minutes): 45 Diagnosis - Discharge Diagnosis (1) Mastitis Status: Acute (2) Complication of breast implant Status: Acute (3) Lethargy Status: Acute (4) Uncontrolled diabetes mellitus Status: Acute (5) Hypertension Status: Chronic Hospital Course - Lab Results Lab Results: Micro Results 03/16/18 06:45 Blood Blood Culture - Preliminary NO GROWTH AFTER 24 HOURS 03/16/18 06:40 Blood Blood Culture - Preliminary NO GROWTH AFTER 24 HOURS Most Recent Lab Values WBC 7.7 K/uL (4.8-10.8) 03/15/18 20:02 RBC 4.31 Mil/uL (3.80-5.20) 03/15/18 20:02 Hgb 12.8 g/dL (11.0-16.0) 03/15/18 20:02 Hct 38.0 % (34.0-47.0) 03/15/18 20:02 MCV 88.1 fL (81.0-99.0) 03/15/18 20:02 MCH 29.7 pg (27.0-31.0) 03/15/18 20:02 MCHC 33.6 g/dL (33.0-37.0) 03/15/18 20:02 RDW 14.0 % (11.5-14.5) 03/15/18 20:02 Plt Count 220 K/uL (130-400) 03/15/18 20:02 MPV 8.8 fL (7.2-11.7) 03/15/18 20:02 Neut % (Auto) 46.3 % (50.0-75.0) L 03/15/18 20:02 Lymph % (Auto) 40.4 % (20.0-40.0) H 03/15/18 20:02 [place] % (Auto) 6.6 % (0.0-10.0) 03/15/18 20:02 Eos % (Auto) 5.5 % (0.0-4.0) H 03/15/18 20:02 Baso % (Auto) 1.2 % (0.0-2.0) 03/15/18 20:02 Neut # (Auto) 3.6 K/uL (1.8-7.0) 03/15/18 20:02 Lymph # (Auto) 3.1 K/uL (1.0-4.3) 03/15/18 20:02 [place] # (Auto) 0.5 K/uL (0.0-0.8) 03/15/18 20:02 Eos # (Auto) 0.4 K/uL (0.0-0.7) 03/15/18 20:02 Baso # (Auto) 0.1 K/uL (0.0-0.2) 03/15/18 20:02 PT 11.3 SECONDS (9.7-12.2) 03/15/18 20:02 INR 1.0 03/15/18 20:02 APTT 31 SECONDS (21-34) 03/15/18 20:02 Sodium 144 mmol/L (132-148) 03/15/18 20:02 Potassium 4.6 mmol/L (3.6-5.2) 03/15/18 20:02 Chloride 106 mmol/L (98-107) 03/15/18 20:02 Carbon Dioxide 26 mmol/L (22-30) 03/15/18 20:02 Anion Gap 16 (10-20) 03/15/18 20:02 BUN 12 mg/dL (7-17) 03/15/18 20:02 Creatinine 0.7 mg/dL (0.7-1.2) 03/15/18 20:02 Est GFR ( Amer) > 60 03/15/18 20:02 Est GFR (Non-Af Amer) > 60 03/15/18 20:02 POC Glucose (mg/dL) 166 mg/dL (65-110) H 03/17/18 11:20 Random Glucose 146 mg/dL (65-105) H 03/15/18 20:02 Calcium 11.6 mg/dl (8.6-10.4) H 03/15/18 20:02 Total Bilirubin 0.3 mg/dL (0.2-1.3) 03/15/18 20:02 AST 34 U/L (14-36) 03/15/18 20:02 ALT 39 U/L (9-52) 03/15/18 20:02 Alkaline Phosphatase 143 U/L (38-126) H 03/15/18 20:02 Total Protein 7.4 g/dL (6.3-8.3) 03/15/18 20:02 Albumin 4.3 g/dL (3.5-5.0) 03/15/18 20:02 Globulin 3.1 gm/dL (2.2-3.9) 03/15/18 20:02 Albumin/Globulin Ratio 1.4 (1.0-2.1) 03/15/18 20:02 Urine Color Yellow (YELLOW) 03/15/18 19:46 Urine Clarity Hazy (Clear) 03/15/18 19:46 Urine pH 5.0 (5.0-8.0) 03/15/18 19:46 Ur Specific [place] 1.029 (1.003-1.030) 03/15/18 19:46 Urine Protein 1+ mg/dL (NEGATIVE) H 03/15/18 19:46 Urine Glucose (UA) Normal mg/dL (Normal) 03/15/18 19:46 Urine Ketones Negative mg/dL (NEGATIVE) 03/15/18 19:46 Urine Blood 1+ (NEGATIVE) H 03/15/18 19:46 Urine Nitrate Negative (NEGATIVE) 03/15/18 19:46 Urine Bilirubin Negative (NEGATIVE) 03/15/18 19:46 Urine Urobilinogen Normal mg/dL (0.2-1.0) 03/15/18 19:46 Ur Leukocyte Esterase 2+ Fausto/uL (Negative) H 03/15/18 19:46 Urine WBC (Auto) 10 /hpf (0-5) H 03/15/18 19:46 Urine RBC (Auto) 12 /hpf (0-3) H 03/15/18 19:46 Ur Squamous Epith Cells 2 /hpf (0-5) 03/15/18 19:46 Calcium Oxalate Crystal Rare /hpf (<OCC) 03/15/18 19:46 Urine HCG, Qual Negative (NEGATIVE) 03/15/18 20:52 - Hospital Course Hospital Course: CC: Breast pain, discharge from right breast HPI: 57F w. pmh of HTN, asthma, hypercholesterolemia, DM, and asthma presents w. Breast pain R>L. Pt has a hx of implants placed in [facility] 10 yrs ago. She states that she had a moderate amount of pain from these implants and went back to [place] 4 months ago for a revision. The implants were removed and she underwent breast augmentation with fat transfer. She states that since the procedure she has again been experiencing constant pain, again R>L. She states that initially following the procedure she had serous drainage from the L breast for several weeks. This resolved on its own but pain persisted. She states that the pain is constant. The pain in the R breast radiates to the R shoulder. She denies any fever but reports chills. No changes in appetite and she denies N/V/D. Pt is not a candidate for surgical intervention she is on antibiotics PMH: See above PSH: Hysterectomy, cholecystectomy, breast augmentation Meds: MAR reviewed NKDA Social: No ETOH/Tobacco/Drugs Fhx: non-contributory PT CLEARED FOR D/C HOME TODAY. RX GIVEN FOR PAIN MEDICINE AND CLEOCIN X7 DAYS. PT TO F/U WITH DR. PAULA AND MAKE AN INITIAL VISIT TO BE EVAL'D BY DR. CARR ([facility]). ALL D/C INFORMATION AND MEDS DISCUSSED AT LENGTH WITH THE PT. NO FURTHER ORDERS. -FOLLOW UP WITH DR. PAULA OR YOUR PRIMARY DOCTOR IN THE OFFICE WITHIN 5-7 DAYS ---CALL THE OFFICE TO MAKE AN APPOINTMENT. -MAKE AN APPOINTMENT TO SEE DR. JINNY CARR (PLASTIC SURGEON) IN HER OFFICE WITHIN 1-2 WEEKS AT MOST. -IF SWELLING AND PAIN TO YOUR BREASTS WORSEN, OR IF DRAINAGE AND/OR SKIN OPENINGS OCCUR, YOU MAY COME BACK TO THE ER FOR FURTHER EVALUATION AND NOTIFY YOUR DOCTOR IMMEDIATELY. -CONTINUE HOME MEDICATIONS USUAL. -YOU HAVE BEEN PRESCRIBED AN ANTIBIOTIC TO TAKE FOR YOUR INFECTION. THE ANTIBIOTIC PRESCRIPTION HAS BEEN SENT TO YOUR PHARMACY; PICK IT UP TODAY AND START TAKING EXACTLY PRESCRIBED: 1) CLEOCIN 300 MG (ANTIBIOTIC)---TAKE 1 CAPSULE BY MOUTH EVERY 8 HOURS (7:00 AM , 3:00 PM, AND 11:00 PM)--TAKE FOR A TOTAL OF 7 DAYS (START TAKING TONIGHT). 2) TRAMADOL 50 MG (PAIN MEDICINE)---TAKE 1 TABLET BY MOUTH EVERY 8 HOURS ONLY IF YOU NEED IT FOR SEVERE PAIN. THIS MEDICATION MAY MAKE YOU DROWSY AND SLEEPY SO BE VERY CAREFUL IF YOU TAKE IT. -FOR MILD TO MODERATE PAIN, TAKE REGULAR STRENGTH TYLENOL ACCORDING TO YOUR DISCHARGE MEDICATION LIST. -YOU MAY APPLY WARM COMPRESS (LIKE A WARM WASH CLOTH) TO YOUR BREASTS TO HELP WITH THE PAIN AND SWELLING; YOU MAY DO THIS SEVERAL TIMES A DAY. -IF YOU HAVE ANY QUESTIONS OR CONCERNS, FEEL FREE TO CONTACT DR. PAULA. Discharge Exam - Head Exam Head Exam: ATRAUMATIC, NORMOCEPHALIC Discharge Plan - Discharge Medications Prescriptions: Clindamycin [Cleocin] 300 mg PO Q8 #21 cap traMADol [Ultram] 50 mg PO TID PRN #15 tab PRN Reason: Pain, Severe (8-10) - Follow Up Plan Condition: GOOD Disposition: HOME/ ROUTINE Instructions: Clindamycin (Systemic), Mastitis (DC), Tramadol, Breast Augmentation (DC) Additional Instructions: -FOLLOW UP WITH DR. PAULA OR YOUR PRIMARY DOCTOR IN THE OFFICE WITHIN 5-7 DAYS ---CALL THE OFFICE TO MAKE AN APPOINTMENT. -MAKE AN APPOINTMENT TO SEE DR. JINNY CARR (PLASTIC SURGEON) IN HER OFFICE WITHIN 1-2 WEEKS AT MOST. -IF SWELLING AND PAIN TO YOUR BREASTS WORSEN, OR IF DRAINAGE AND/OR SKIN OPENINGS OCCUR, YOU MAY COME BACK TO THE ER FOR FURTHER EVALUATION AND NOTIFY YOUR DOCTOR IMMEDIATELY. -CONTINUE HOME MEDICATIONS USUAL. -YOU HAVE BEEN PRESCRIBED AN ANTIBIOTIC TO TAKE FOR YOUR INFECTION. THE ANTIBIOTIC PRESCRIPTION HAS BEEN SENT TO YOUR PHARMACY; PICK IT UP TODAY AND START TAKING EXACTLY PRESCRIBED: 1) CLEOCIN 300 MG (ANTIBIOTIC)---TAKE 1 CAPSULE BY MOUTH EVERY 8 HOURS (7:00 AM , 3:00 PM, AND 11:00 PM)--TAKE FOR A TOTAL OF 7 DAYS (START TAKING TONIGHT). 2) TRAMADOL 50 MG (PAIN MEDICINE)---TAKE 1 TABLET BY MOUTH EVERY 8 HOURS ONLY IF YOU NEED IT FOR SEVERE PAIN. THIS MEDICATION MAY MAKE YOU DROWSY AND SLEEPY SO BE VERY CAREFUL IF YOU TAKE IT. -FOR MILD TO MODERATE PAIN, TAKE REGULAR STRENGTH TYLENOL ACCORDING TO YOUR DISCHARGE MEDICATION LIST. -YOU MAY APPLY WARM COMPRESS (LIKE A WARM WASH CLOTH) TO YOUR BREASTS TO HELP WITH THE PAIN AND SWELLING; YOU MAY DO THIS SEVERAL TIMES A DAY. -IF YOU HAVE ANY QUESTIONS OR CONCERNS, FEEL FREE TO CONTACT DR. PAULA. Referrals: Roger Paula MD [Staff Provider] - Abhishek Olsen Jr., MD [Staff Provider] - Jinny Carr MD [Staff Provider] -
== END 2018-03-17 12:55 | disposition home or self-care (01) ==
LOC: C.ER 18:54 → C.9E 22:19 → C.3T 23:22
PROVIDERS: ADMIT Internal Medicine; ATTEND Internal Medicine
DX: N61.0 Mastitis without abscess (principal); G89.18 Other acute postprocedural pain; E11.22 Type 2 diabetes mellitus with diabetic chronic kidney disease; E78.00 Pure hypercholesterolemia, unspecified; I12.9 Hypertensive chronic kidney disease with stage 1 through stage 4 chronic kidney disease, or unspecified chronic kidney disease; E11.65 Type 2 diabetes mellitus with hyperglycemia; J44.9 Chronic obstructive pulmonary disease, unspecified; N18.9 Chronic kidney disease, unspecified; E03.9 Hypothyroidism, unspecified; Z86.73 Personal history of transient ischemic attack (TIA), and cerebral infarction without residual deficits; N64.4 Mastodynia
CPT/HCPCS: 36415; 71046; 71260; 80053; 81001; 82948; 84703; 85025; 85610; 85730; 87040; 93005; 96360; 96365; 96374; 99285; G0378; J1650; J1885; J2543; J7030; J7050

== ENCOUNTER 2018-08-26 14:46 | Outpatient (CLI) | payer MEDICARE, MEDICAID | END 2018-08-26 14:47 | disposition home or self-care (01) | LOC: C.CTH 14:46 | DX: R13.14 Dysphagia, pharyngoesophageal phase (principal) ==

== ENCOUNTER 2018-09-26 12:26 | Outpatient (CLI) | payer MEDICAID | END 2018-09-26 12:27 | disposition home or self-care (01) | LOC: C.LAB 12:26 ==